=== PATIENT | male | born 1995 | race Caucasian/White ===

== ENCOUNTER 2020-12-24 17:50 | Emergency (ER) | payer MEDICAID, SELFPAY ==
--- NOTE | 2020-12-24 19:47 | PC.NURSE ---
Called into triage room by this RN at 19:18. Not in waiting room, [facility].
== END 2020-12-24 20:45 | disposition left against medical advice (07) ==
PROVIDERS: Emergency Provider Emergency Medicine
DX: K59.00 Constipation, unspecified (principal)